=== PATIENT | male | born 1985 | race Caucasian/White ===

== ENCOUNTER 2018-07-15 14:28 | Emergency (ER) | payer BC, OTHER ==
[~2018-07-15] VITALS: Ht 175.3 cm; Wt 60.8 kg
[2018-07-15 16:42] VITALS: BP 134/77
== END 2018-07-15 17:50 | disposition home or self-care (01) ==
LOC: ER 14:30
DX: S00.83XA Contusion of other part of head, initial encounter (principal); W22.8XXA Striking against or struck by other objects, initial encounter; Y93.89 Activity, other specified; Y92.89 Other specified places as the place of occurrence of the external cause; Y99.8 Other external cause status
CPT/HCPCS: 70450; 99284; A4606; Z7610